=== PATIENT | female | born 1990 | race Caucasian/White ===

== ENCOUNTER 2016-09-13 15:08 | Emergency (ER) | payer OTHER ==
[2016-09-13 16:01] LABS: HEMOGLOBIN 13.8 gm/dl (12.3-15.3); RED BLOOD COUNT 4.66 M/UL (4.00-5.10); WHITE BLOOD COUNT 6.3 K/UL (4.5-11.0)
[2016-09-13 16:29] LABS: BUN/CREATININE RATIO 17 (0-10)
== END 2016-09-13 18:00 | disposition home or self-care (01) ==
LOC: ER1 15:08
PROVIDERS: Preventive Medicine Occupational Medicine
DX: M94.0 Chondrocostal junction syndrome [Tietze] (principal); S29.011A Strain of muscle and tendon of front wall of thorax, initial encounter; F17.200 Nicotine dependence, unspecified, uncomplicated; X58.XXXA Exposure to other specified factors, initial encounter; G40.909 Epilepsy, unspecified, not intractable, without status epilepticus; Z79.899 Other long term (current) drug therapy
CPT/HCPCS: 36415; 71010; 80053; 80307; 81001; 82550; 82553; 83874; 84484; 85025; 93005; 96374; 96375; 99285; C9113; J1885; J2060; J2270